=== PATIENT | female | born 1965 | race Caucasian/White ===

== ENCOUNTER 2018-11-18 14:40 | Day surgery (SDC) | payer OTHER ==
[2018-11-18] MEDS ORDERED: BUPIVACAINE 0.5% (SDV) 30 ML INJ (16:09)
[2018-11-18] MEDS ORDERED: LIDOCAINE 1% (MPF) 30 ML INJ (16:09)
[2018-11-18] MEDS ORDERED: BUPIVACAINE 0.25% (MPF) 30 ML INJ (16:20)
[2018-11-18] MEDS ORDERED: MIDAZOLAM 1 MG/ML 2 ML INJ (16:20)
[2018-11-18] MEDS ORDERED: FENTAnyl 50 MCG/ML VIAL (16:20)
[2018-11-18] MEDS ORDERED: ROPIVACAINE 0.5 % 30 ML VIAL (16:21)
[2018-11-18] MEDS ORDERED: PROPOFOL 100 ML (16:33)
[2018-11-18] MEDS ORDERED: CEFAZOLIN 1 GM INJ (16:55)
[2018-11-18] MEDS ORDERED: LIDOCAINE 2% (SDV) 5 ML INJ (16:55)
[2018-11-18] MEDS ORDERED: OXYCODONE/ACETAMINOPHEN (5/325) TAB PO ×2 (17:30)
[2018-11-18] MEDS ORDERED: ONDANSETRON 4 MG INJ IV (17:30)
[2018-11-18] MEDS ORDERED: KETOROLAC 30 MG INJ IV (17:30)
[2018-11-18] MEDS ORDERED: MEPERIDINE 25 MG INJ IV (17:30)
[2018-11-18] MEDS ORDERED: DIPHENHYDRAMINE 50 MG INJ IV (17:30)
[2018-11-18] MEDS ORDERED: hydrALAzine 20 MG INJ IV (17:30)
[2018-11-18] MEDS ORDERED: ALBUTEROL 0.083% (NEB) 2.5 MG/3 ML AMP HHN (17:30)
[2018-11-18] MEDS ORDERED: LABETALOL HCL 20MG INJ IV (17:30)
[2018-11-18] MEDS ORDERED: FENTAnyl 50 MCG/ML VIAL IV ×3 (17:30)
[2018-11-18] MEDS ORDERED: EPHEDrine SULFATE 50 MG/5 ML SYG IV (17:30)
== END 2018-11-18 18:56 | disposition home or self-care (01) ==
LOC: SDS 14:40
DX: G56.02 Carpal tunnel syndrome, left upper limb (principal); M65.332 Trigger finger, left middle finger; M67.442 Ganglion, left hand; E03.9 Hypothyroidism, unspecified
CPT/HCPCS: 26160; 84703